=== PATIENT | male | born 1945 | race Caucasian/White ===

== ENCOUNTER 2018-01-11 17:21 | Inpatient (IN) | payer MEDICARE ==
[2018-01-11 17:53] VITALS: BMI 27.8
[2018-01-11] MEDS ORDERED: Milk Of Magnesia 30 ML UDCUP PO PRN (18:01)
[2018-01-11] MEDS ORDERED: Loperamide HCl 2 MG CAP PO PRN (18:01)
[2018-01-11] MEDS ORDERED: Ondansetron ODT 4 MG TAB PO PRN (18:01)
[2018-01-11] MEDS ORDERED: Calcium Carbonate 500 MG ChewTAB PO PRN (18:01)
[2018-01-11] MEDS ORDERED: HYDROcodone/Acetaminophen 10/325 mg Tablet PO PRN (18:01)
[2018-01-11] MEDS ORDERED: Mag-Al 1200 mg/1200 mg/30 ML UDCUP PO PRN (18:01)
[2018-01-11] MEDS ORDERED: Acetaminophen 325 MG TAB PO PRN (18:01)
[2018-01-11] MEDS ORDERED: Diazepam 5 MG TAB PO PRN (18:06)
[2018-01-11] MEDS: Docusate 100 MG CAP PO SCH (20:31)
[2018-01-11] MEDS: cloNIDine 0.1 MG TAB PO SCH (20:31)
[2018-01-11] MEDS: HYDROcodone/Acetaminophen 10/325 mg Tablet PO PRN (21:15)
--- NOTE | 2018-01-11 22:03 | HP ---
DATE OF ADMISSION: 01/11/2018 HISTORY OF PRESENT ILLNESS: Mr. Zuniga is a very pleasant 72-year-old white male that came to [facility] unannounced without contacting me or contacting the charge nurse. The patient i s admitted, seen and had an elective sacroiliac fusion with internal fixation device was done by Dr. Kaiser on 01/08/2018. The patient, for some reason, got transferred by ambulance without contactin g us. The DON had indication that he was supposed to come, but we did not get any reports to the [facility] or myself. Nonetheless, the patient showed up here and was admitted to swing bed for physical therapy and occupa tional therapy, statin because of his weakness. PAST MEDICAL HISTORY: 1. Positive for hypertension. 2. COPD. 3. Congenital heart disease. 4. Essential tremor. 5. Hypothyroidism. 6. Chronic pain management. 7. Osteoarthritis. 8. Prior stroke. 9. Possible prediabetes. 10. Generalized weakness. 11. Pain management. PAST SURGICAL HISTORY: 1. Appendectomy. 2. Cervical arthrodesis. 3. Exploratory laparotomy. 4. Surgical intervertebral disk surgery. 5. Melanoma excision in 1978. 6. Median nerve decompression. 7. Re-open laminectomy. 8. Sacroiliac arthrodesis. 9. Appendectomy. SOCIAL HISTORY: Reveals patient is . He stopped smoking in 1993. 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 PRESENT MEDICATIONS: Reveals his home medicines include the followin. Lisinopril 40 mg a day. 2. Clonidine 0.1 mg twice a day. 3. Levothyroxine 150 mcg each morning. 4. Sertraline 50 mg a day. 5. Valium 5 mg t.i.d. p.r.n. 6. [place] 10 q.6 hours. 7. Advair 250/50 twice a day. ALLERGIES: Patient has other medications from [facility] that trying to decipher what they want him on. REVIEW OF SYSTEMS: Revealed the patient denies any fever, chills, night sweats. He has fatigue and malaise. Patient denies any new skin rashes or skin lesions. 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 Patient denies any ch est pain, claudication, palpitations, syncope or edema. The patient does complain of some shortness of breath and COPD. Occasionally, he wheezes. Presently, he is on oxygen. He does usually wear oxy gen at home. GI paiz, the patient denies nausea, vomiting, indigestion, diarrhea or constipation. T he patient does complain arthralgias, stiffness, back pain, achiness and swelling and pain, especiall y at the surgical site. Neurologic: The patient is oriented to person, place and denies any signifi cant confusion. He does have some numbness and weakness secondary to his surgery. Psychologic: The patient's states he stay stressed and anxious and depressed at times. His memory is actually p retty good, but feels a little stroke and got a little worse. PHYSICAL EXAMINATION: GENERAL: This is a well-developed, well-nourished, very pleasant white male in no apparent distress at this time. HEENT: Reveals normocephalic, nontraumatic cranium. Pupils equally round and reactive. Extraocular movements intact. Nose and throat are slightly dry. NECK: Supple, without mass, nodes or bruits. LUNGS: Chest is clear to auscultation, but chest sounds are distant. No rales or rhonchi are heard at this time. Patient has rare wheeze which clears with cough. HEART: Reveals a regular rate and rhythm but is distant. No murmurs are heard because of the decrea sed heart sounds. ABDOMEN: Slightly obese, soft, nontender, without organomegaly, normal bowel sounds are noted. No r ebound or guarding is noted. : Deferred. EXTREMITIES: Reveal no clubbing, cyanosis or edema. NEUROLOGIC: The patient and his both state that Dr. Kaiser does not want him weightbearing on that left foot or leg. He is transferred here for PT and OT mainly and pain management. ASSESSMENT: 1. Status post sacroiliac fusion with internal fixation device done by Dr. Kaiser on 01/08/2018. 2. Hypertension. 3. Chronic obstructive pulmonary disease. 4. Congenital heart disease. 5. Essential tremor. 6. Hypothyroidism. 7. Chronic pain management. 8. Osteoarthritis. 9. Stroke. 10. Prediabetes. 11. Generalized weakness. PLAN: 1. We will try to get the patient's pain medicines organized. We will restart all his home medicine s. Follow his blood pressure and thyroid. We will also follow his sugars at this time. 2. Stress ulcer prophylaxis. 3. Decubitus precautions. 4. DVT prophylaxis. 5. Continue to monitor the patient for prediabetes with Accu-Cheks a.c. and at bedtime. 6. Continue to monitor the patient's blood pressure closely. 7. Physical therapy and occupational therapy.
[2018-01-12] MEDS: HYDROcodone/Acetaminophen 10/325 mg Tablet PO PRN ×4 (02:44→17:29)
[2018-01-12] MEDS: Levothyroxine 150 MCG TAB PO SCH (05:34)
[2018-01-12 05:37] LABS: #Basophils 0.1 thou/uL (0.0-0.2); #Eosinphils 0.5 thou/uL (0.0-0.7); #Lymphocytes 1.2 thou/uL (1.20-3.40); #Monocytes 0.8 thou/uL (0.11-0.59); %Basophils 1.7 % (0.0-1.0); %Eosinophils 8.5 % (0.0-10.0); %Lymphocytes 21.8 % (21.0-51.0); %Monocytes 13.6 % (0.0-10.0); %Neutrophils 54.4 % (42.0-75.0); Hemoglobin 10.9 g/dL (14.0-18.0); Mean Corpuscular HGB CONC 33.3 g/dL (32.0-36.0); Mean Corpuscular Hemoglobin 28.7 pg (27.0-31.0); Mean Corpuscular Volume 86.1 fL (78.0-98.0); Mean Platelet Volume 6.3 fL (7.4-10.4); Platelet Count 184 thou/uL (130-400); RBC Distribution Width 12.6 % (11.5-14.5); Red Blood Cell (RBC) Count 3.79 mill/uL (4.70-6.10); White Blood Cell (WBC) Count 5.5 thou/uL (4.8-10.8)
[2018-01-12 05:51] LABS: ALT (SGPT) 12 U/L (8-55); AST (SGOT) 21 U/L (5-34); Albumin 3.1 g/dL (3.4-4.8); Alkaline Phosphatase 50 U/L (40-150); Anion Gap 10 mmol/L (10-20); BUN (Urea Nitrogen) 10 mg/dL (8.4-25.7); Bilirubin, Total 0.7 mg/dL (0.2-1.2); Calc. Creatinine Clearance 119 mL/min (70-130); Calcium 8.8 mg/dL (7.8-10.44); Carbon Dioxide 26 mmol/L (23-31); Chloride 96 mmol/L (98-107); Estimated GFR-MDRD Greater than 90; Globulin 2.3 g/dL (2.4-3.5); Glucose 115 mg/dL (83-110); Potassium 4.4 mmol/L (3.5-5.1); Protein, Total 5.4 g/dL (5.8-8.1); Sodium 128 mmol/L (136-145)
[2018-01-12 05:54] LABS: Bilirubin Negative (Negative); Blood, Urine Negative (Negative); Clarity Clear (Clear); Glucose, Urine (Dipstick) Negative (Negative); Leukocyte Negative (Negative); Nitrite Negative (Negative); Protein, Urine (Dipstick) Negative (Neg-Trace); Urobilinogen 0.2 mg/dL (0.2-1.0)
[2018-01-12 05:56] LABS: Bacteria/HPF None Seen HPF (None Seen); RBC/HPF None Seen HPF (0-3); Squamous Epithelial 0-3 HPF (0-3); WBC/HPF None Seen HPF (0-3)
--- NOTE | 2018-01-12 09:09 | PRG ---
DATE OF SERVICE: 01/12/2018 HISTORY OF PRESENT ILLNESS: Mr. Zuniga is a very pleasant 72-year-old white male that came from [facility] after having a sacral fusion with internal fixation device done by Dr. Adis chawla. The patient actually showed appear unannounced. The patient was admitted to swing bed for PT , OT to increase the strength and his stamina. SUBJECTIVE: The patient states he is doing well today. His pain is fairly well controlled. His onl y complaint is that he is worried that his pain may not go away as much as he hopes. OBJECTIVE: VITAL SIGNS: Today reveal blood pressure 131/62, pulse 63-82, respirations 18-20, O2 sat 94%-96% on 2 liters, T-max is 98.0. LABORATORY DATA: Reveals white count 5000, hemoglobin 10.9, hematocrit 32.6, platelet count 184,000. Sodium 128, which is low and the patient states he always runs low sodium and has been given salt i n the past. Potassium is 4.6. His BUN is 10, creatinine 0.76 and his GFR is greater than 90. Sugar this morning was 115. Urinalysis was unremarkable. PHYSICAL EXAMINATION: GENERAL: This is a well-developed, well-nourished, very pleasant white male in no apparent distress at this time. HEENT: Reveals normocephalic, nontraumatic cranium. Pupils equally round and reactive. Extraocular movements intact. Nose and throat are slightly dry. NECK: Supple, without mass, nodes or bruits. LUNGS: Chest is clear to auscultation. No rales, rhonchi, wheezes or cough is noted. HEART: Reveals a regular rate and rhythm without murmurs, gallops or rubs. ABDOMEN: Soft, nontender, without organomegaly, normal bowel sounds are noted. No rebound or guardi ng is noted. GENITOURINARY: Deferred. EXTREMITIES: Reveal no clubbing, cyanosis or edema. BACK: Still bandaged up. No significant drainage. IMPRESSION: 1. Status post sacral fusion with an internal fixation device done by Dr. Kaiser on 01/08/2018. 2. Hypertension. 3. Chronic obstructive pulmonary disease, but not on oxygen at home. 4. Congenital heart disease. 5. Essential tremor. 6. Hypothyroidism. 7. Osteoarthritis. 8. Stroke. 9. Prediabetic. 10. Chronic pain management. 11. Generalized weakness. PLAN: 1. The patient seems to be doing fairly well today. His thyroid and everything is under control. W e will continue to follow his sugars. 2. Stress ulcer prophylaxis. 3. Decubitus precautions. 4. Deep venous thrombosis prophylaxis. 5. Continue prediabetic Accu-Cheks a.c. and at bedtime. 6. Continue to monitor the patient's blood pressure closely. 7. PT and OT.
[2018-01-12] MEDS: cloNIDine 0.1 MG TAB PO SCH ×2 (09:28→20:40)
[2018-01-12] MEDS: Docusate 100 MG CAP PO SCH ×2 (09:29→20:40)
[2018-01-12] MEDS: Lisinopril 20 MG TAB PO SCH (09:29)
[2018-01-12] MEDS: ADVAIR INH SCH (09:38)
[2018-01-13] MEDS: HYDROcodone/Acetaminophen 10/325 mg Tablet PO PRN ×4 (01:03→20:31)
[2018-01-13] MEDS: ADVAIR INH SCH ×2 (05:30→18:15)
[2018-01-13] MEDS: Levothyroxine 150 MCG TAB PO SCH (06:24)
--- NOTE | 2018-01-13 09:05 | PRG ---
DATE OF SERVICE: 01/13/2018 DATE OF ADMISSION: 01/11/2018 HISTORY OF PRESENT ILLNESS: Mr. Zuniga is a very pleasant 72-year-old white male, who was transferre d from [facility] for physical therapy and occupational therapy. Dr. Kaiser did a sacral fusion with internal fixation device. The patient is looking forward to getting his therapy starting tomorrow. He did have a PT/OT evaluation yesterday. SUBJECTIVE: The patient states he is doing well, and he has no complaints today. His pain is fairly well controlled. PHYSICAL EXAMINATION: VITAL SIGNS: Reveal blood pressure 122/76, pulse 80-81, respirations 20, O2 sat 95% on 2 liters nasa l cannula, T-max 98.4. GENERAL: This is a well-developed, well-nourished, slightly obese white male, in no apparent distres s at this time. HEENT: Reveals normocephalic, nontraumatic cranium. Pupils equally round and reactive. Extraocular movements intact. Nose and throat are slightly dry. NECK: Supple, without mass, nodes, or bruits. CHEST: Clear to auscultation. No rales, rhonchi, or wheezes are heard. CARDIOVASCULAR: Reveals a regular rate and rhythm without murmurs, gallops, or rubs. ABDOMEN: Soft, nontender, without organomegaly. Normal bowel sounds are noted in all 4 quadrants. No rebound or guarding is noted. EXAM: Deferred. EXTREMITIES: Reveal no clubbing, cyanosis, or edema. Good strength. BACK: Reveals is still bandaged up with no significant drainage. IMPRESSION: 1. Status post sacral fusion with an internal fixation device done by Dr. Kaiser on 01/08/2018. 2. Hypertension. 3. Chronic obstructive pulmonary disease. 4. Congenital heart disease. 5. Essential tremor. 6. Hypothyroidism. 7. Osteoarthritis. 8. Stroke. 9. Prediabetic. 10. Chronic pain management. 11. Generalized weakness. PLAN: 1. Continue to monitor the patient's sugars with Accu-Cheks a.c. and at bedtime 1 more day and then we can stop. 2. Stress ulcer prophylaxis. 3. Decubitus precautions. 4. Deep venous thrombosis prophylaxis. 5. Continue prediabetic Accu-Cheks a.c. and at bedtime. 6. Continue to monitor the patient's blood pressure closely. 7. PT and OT.
[2018-01-13] MEDS: cloNIDine 0.1 MG TAB PO SCH ×2 (09:10→20:31)
[2018-01-13] MEDS: Docusate 100 MG CAP PO SCH ×2 (09:11→20:31)
[2018-01-13] MEDS: Lisinopril 20 MG TAB PO SCH (09:11)
[2018-01-13] MEDS: Mag-Al Plus 1200 MG/1200 MG/120 MG/30 ML UDCUP PO PRN (21:23)
[2018-01-14] MEDS: HYDROcodone/Acetaminophen 10/325 mg Tablet PO PRN ×3 (03:35→20:27)
[2018-01-14] MEDS: Levothyroxine 150 MCG TAB PO SCH (05:49)
[2018-01-14] MEDS: ADVAIR INH SCH (05:50)
[2018-01-14] MEDS: cloNIDine 0.1 MG TAB PO SCH ×2 (09:28→20:26)
[2018-01-14] MEDS: Lisinopril 20 MG TAB PO SCH (09:29)
[2018-01-14] MEDS: Docusate 100 MG CAP PO SCH ×2 (09:29→20:27)
[2018-01-14] MEDS: Mag-Al Plus 1200 MG/1200 MG/120 MG/30 ML UDCUP PO PRN (14:53)
[2018-01-14] MEDS: Mometasone/Formoterol 60 PUFF AER INH SCH (18:04)
--- NOTE | 2018-01-15 00:56 | PRG ---
DATE OF SERVICE: 01/14/2018 SUBJECTIVE: The patient is a very pleasant 72-year-old white male with a history of recent sacral fu ashia with internal fixation device at the left sacroiliac area by Dr. Kaiser, who was admitted for PT and OT. He has been up walking to the cruz, which states is a great improvement. He is now complaining however of right-sided pain. He also has a history of hypertension, COPD, and has had so me hypoxemia requiring oxygen supplementation, but denies shortness of breath or chest pain. OBJECTIVE: VITAL SIGNS: Blood pressure is 118/67, O2 sats 93% on 1 liter, afebrile, pulse 69. LUNGS: Clear. CARDIAC: Regular rhythm. No gallops or murmurs. ABDOMEN: Soft and nontender with no masses or organomegaly. SKIN/EXTREMITIES: Some bruising over the left sacroiliac area with no erythema or warmth. ASSESSMENT: 1. Resolving sacroiliac joint fusion by Dr. Kaiser, left side, with decreased pain and increased a mbulation. 2. Hypertension, controlled to goal. 3. Chronic obstructive pulmonary disease with no significant dyspnea and mild hypoxia, on supplement ation. PLAN: Discontinue oxygen. Monitor O2 sats. Continue PT/OT. Arranged for the patient to go to see Dr. Kaiser on 01/17/2018.
[2018-01-15] MEDS: Mometasone/Formoterol 60 PUFF AER INH SCH (05:25)
[2018-01-15] MEDS: Levothyroxine 150 MCG TAB PO SCH (05:25)
[2018-01-15] MEDS: HYDROcodone/Acetaminophen 10/325 mg Tablet PO PRN ×5 (05:26→23:14)
[2018-01-15] MEDS: Lisinopril 20 MG TAB PO SCH (08:55)
[2018-01-15] MEDS: Docusate 100 MG CAP PO SCH ×2 (08:56→20:10)
[2018-01-15] MEDS: cloNIDine 0.1 MG TAB PO SCH ×2 (08:56→20:10)
[2018-01-15] MEDS: Mag-Al Plus 1200 MG/1200 MG/120 MG/30 ML UDCUP PO PRN (17:53)
[2018-01-15] MEDS: ADVAIR INH SCH (18:39)
--- NOTE | 2018-01-15 19:32 | PRG ---
DATE OF SERVICE: 01/15/2018 SUBJECTIVE: The patient feels well with decreased pain in his back, has been eating well, sleeping w ell. No shortness of breath or constipation. Still, however, is unable to transfer into the car ant icipation of his trip to see his surgeon in 2 days, but we will attempt this tomorrow. OBJECTIVE: VITAL SIGNS: Blood pressure 118/67, pulse 64, O2 sats 94% on room air. He is afebrile. Laboratorie s show Accu-Chek stable from 101-150. LUNGS: Clear. CARDIAC: Regular rhythm. ABDOMEN: Soft, nontender. SKIN AND EXTREMITIES: Show minimal tenderness to palpation of bilateral sacroiliac areas. ASSESSMENT: 1. Resolving sacroiliac joint fusion, left side with persistent but decreased pain. 2. Hypertension, controlled to goal. 3. Chronic obstructive pulmonary disease, stable. 4. Stable off oxygen. 5. Hypothyroidism, stable.
[2018-01-16] MEDS: HYDROcodone/Acetaminophen 10/325 mg Tablet PO PRN ×4 (03:13→19:57)
[2018-01-16] MEDS: ADVAIR INH SCH ×4 (05:31→18:22)
[2018-01-16] MEDS: Levothyroxine 150 MCG TAB PO SCH (05:31)
[2018-01-16] MEDS: Docusate 100 MG CAP PO SCH ×2 (08:55→19:57)
[2018-01-16] MEDS: cloNIDine 0.1 MG TAB PO SCH ×2 (08:55→19:56)
[2018-01-16] MEDS: Lisinopril 20 MG TAB PO SCH (08:55)
--- NOTE | 2018-01-16 17:16 | PRG ---
DATE OF SERVICE: 01/16/2018 SUBJECTIVE: The patient is sitting up in bed reading the paper, feels well. He did well with therap y today and asking when he can be discharged. He is planning to see his surgeon tomorrow. OBJECTIVE: VITAL SIGNS: Blood pressure is 124/64, O2 sats 94% on room air, pulse 62, respirations 20, temperatu re 97.8. The patient did walk today and transfer to the car, but still he is in a great deal of pain and not a ble to walk long distances. ASSESSMENT: 1. Resolving left sacroiliac fusion with increasing strength with persistent pain. 2. Chronic obstructive pulmonary disease, stable with no hypoxemia. 3. Hypertension, controlled to goal. 4. Hypothyroidism. PLAN: 1. Follow up with Dr. Kaiser tomorrow. 2. Continue PT, OT until reach goal.
[2018-01-17] MEDS: HYDROcodone/Acetaminophen 10/325 mg Tablet PO PRN ×4 (01:29→21:11)
[2018-01-17] MEDS: Levothyroxine 150 MCG TAB PO SCH (06:16)
[2018-01-17] MEDS: ADVAIR INH SCH ×3 (07:05→18:25)
[2018-01-17] MEDS: Lisinopril 20 MG TAB PO SCH (08:25)
[2018-01-17] MEDS: Docusate 100 MG CAP PO SCH ×2 (08:25→21:11)
[2018-01-17] MEDS: cloNIDine 0.1 MG TAB PO SCH ×2 (08:25→21:09)
--- NOTE | 2018-01-17 19:04 | PRG ---
DATE OF SERVICE: 01/17/2018 SUBJECTIVE: The patient feels well, has recently returned from seeing his neurosurgeon, Dr. Kaiser and has had release to ambulate as tolerated. OBJECTIVE: VITAL SIGNS: Blood pressure 141/63, temperature 97, pulse 70, respirations 18, O2 saturation is 95%. LUNGS: Clear. CARDIAC: Showed regular rhythm. ABDOMEN: Soft, nontender. BACK: Shows persistent but decreased lower back pain. ASSESSMENT: 1. Resolving sacroiliac fusion on the left with decreasing spasms and tenderness, increasing strengt h. 2. Chronic obstructive pulmonary disease, stable. 3. Hypertension, controlled to goal. 4. Hypothyroidism, stable. PLAN: Continue PT, OT tomorrow and possible discharge after OT tomorrow.
[2018-01-17 19:47] VITALS: TEMP 98
[2018-01-18] MEDS: Mag-Al Plus 1200 MG/1200 MG/120 MG/30 ML UDCUP PO PRN (03:11)
[2018-01-18] MEDS: Levothyroxine 150 MCG TAB PO SCH (06:07)
[2018-01-18] MEDS: ADVAIR INH SCH (06:08)
[2018-01-18] MEDS: cloNIDine 0.1 MG TAB PO SCH (08:48)
[2018-01-18] MEDS: Docusate 100 MG CAP PO SCH (08:48)
[2018-01-18] MEDS: Lisinopril 20 MG TAB PO SCH (08:48)
[2018-01-18] MEDS: HYDROcodone/Acetaminophen 10/325 mg Tablet PO PRN (12:49)
[2018-01-18 14:09] VITALS: BP 132/72
--- NOTE | 2018-01-18 23:12 | DIS ---
DATE OF ADMISSION: 01/11/2018 DATE OF DISCHARGE: 01/18/2018 FINAL DIAGNOSES: 1. Bilateral sacroiliac instability, status post fusion with internal fixation device on 01/08/2018 2. Chronic obstructive pulmonary disease, stable. 3. Hypothyroidism, stable. 4. Prediabetes, stable. 5. Essential tremor. 6. Hypertension. 7. Hypothyroidism. HOSPITAL COURSE: The patient is a very pleasant 72-year-old white male, admitted to the skilled unit after having a sacroiliac fusion on the left by Dr. Kaiser. He was admitted for PT and OT. He di d well during therapy with gradually decreasing back pain, increasing stability, and was seen by Dr. Kaiser and felt to be stable to be discharged home after 1 week. He was continued on his home medi cations of lisinopril 40 daily, clonidine 0.1 twice daily, levothyroxine 150 mcg daily, sertraline 50 daily, Valium 5 mg 3 times daily as needed, [place] 5 mg every 6 hours as needed, Advair 250/50 twice daily. He also had a fentanyl patch on 25 mcg to last until next week and to be renewed by Dr. Loki duncan if required. His laboratory during his hospitalization was stable with a hemoglobin of 10, hemat ocrit of 32, white count 5500. Sodium was 128, potassium 4.4, chloride 96, bicarbonate 26, BUN 10, c reatinine 0.76. Accu-Cheks remained stable at 125-149 on a diabetic diet. He will follow up with [facility] PCP, Dr. Olson and Dr. Kaiser.
== END 2018-01-18 13:50 | disposition home or self-care (01) | DRG 552 ==
LOC: NAV ACUTE 17:21
PROVIDERS: ADMIT Internal Medicine; ATTEND Internal Medicine
DX: M53.2X8 Spinal instabilities, sacral and sacrococcygeal region (principal); M46.1 Sacroiliitis, not elsewhere classified; G89.18 Other acute postprocedural pain; Z98.1 Arthrodesis status; J44.9 Chronic obstructive pulmonary disease, unspecified; E03.9 Hypothyroidism, unspecified; R73.03 Prediabetes; G25.0 Essential tremor; I10 Essential (primary) hypertension; Q24.9 Congenital malformation of heart, unspecified; G89.29 Other chronic pain; M19.90 Unspecified osteoarthritis, unspecified site; Z86.73 Personal history of transient ischemic attack (TIA), and cerebral infarction without residual deficits; Z85.820 Personal history of malignant melanoma of skin; Z87.891 Personal history of nicotine dependence; Z99.81 Dependence on supplemental oxygen; Y83.4 Other reconstructive surgery as the cause of abnormal reaction of the patient, or of later complication, without mention of misadventure at the time of the procedure; Y79.3 Surgical instruments, materials and orthopedic devices (including sutures) associated with adverse incidents; Y92.129 Unspecified place in nursing home as the place of occurrence of the external cause
CPT/HCPCS: 36415; 36416; 80053; 81001; 85025; G8978-GP-CK; G8979-GP-CI

== ENCOUNTER 2018-01-22 07:11 | Emergency (ER) | payer MEDICARE ==
[2018-01-22 08:20] LABS: #Basophils 0.1 thou/uL (0.0-0.2); #Lymphocytes 1.4 thou/uL (1.20-3.40); #Monocytes 0.5 thou/uL (0.11-0.59); #Neutrophils 7.1 thou/uL (1.40-6.50); %Basophils 0.8 % (0.0-1.0); %Eosinophils 0.1 % (0.0-10.0); %Lymphocytes 14.9 % (21.0-51.0); %Monocytes 5.8 % (0.0-10.0); %Neutrophils 78.3 % (42.0-75.0); Hemoglobin 13.1 g/dL (14.0-18.0); Mean Corpuscular HGB CONC 32.7 g/dL (32.0-36.0); Mean Corpuscular Hemoglobin 28.1 pg (27.0-31.0); Mean Corpuscular Volume 85.9 fL (78.0-98.0); Mean Platelet Volume 5.9 fL (7.4-10.4); Platelet Count 457 thou/uL (130-400); RBC Distribution Width 13.1 % (11.5-14.5); Red Blood Cell (RBC) Count 4.67 mill/uL (4.70-6.10); White Blood Cell (WBC) Count 9.1 thou/uL (4.8-10.8)
[2018-01-22] MEDS ORDERED: Lorazepam 2 MG/ML VIAL ONE (08:30)
[2018-01-22] MEDS ORDERED: Lorazepam 1 MG TAB ONE (08:32)
[2018-01-22 08:35] LABS: CKMB 2.3 ng/mL (0-6.6); Troponin I 0.013 ng/mL (< 0.028)
[2018-01-22 08:36] LABS: ALT (SGPT) 20 U/L (8-55); AST (SGOT) 17 U/L (5-34); Alkaline Phosphatase 84 U/L (40-150); Anion Gap 15 mmol/L (10-20); BUN (Urea Nitrogen) 7 mg/dL (8.4-25.7); Bilirubin, Total 0.6 mg/dL (0.2-1.2); CK (CPK) 96 U/L (30-200); Calc. Creatinine Clearance 0 mL/min (70-130); Carbon Dioxide 21 mmol/L (23-31); Chloride 103 mmol/L (98-107); Estimated GFR-MDRD 77; Globulin 2.7 g/dL (2.4-3.5); Glucose 177 mg/dL (83-110); Potassium 3.7 mmol/L (3.5-5.1); Protein, Total 6.7 g/dL (5.8-8.1); Sodium 135 mmol/L (136-145)
[2018-01-22] MEDS ORDERED: Furosemide 20 MG/2 ML VIAL ONE (08:47)
--- NOTE | 2018-01-22 09:29 | RAD ---
CHEST 1 VIEW: Date: 01/22/18 HISTORY: Shortness of breath. COMPARISON: Chest radiograph from 2006. FINDINGS: Lungs are hyperinflated. No focal air space consolidation. There is dilatation of the pulmonary arter ies. No acute osseous abnormality. Old left clavicular injury. ACDF hardware incompletely evaluated. IMPRESSION: 1. Lung hyperinflation suggesting obstructive pulmonary disease. 2. Pulmonary arterial hypertension. POS: [facility]
== END 2018-01-22 09:52 | disposition home or self-care (01) ==
LOC: NAV ERS 07:11
DX: R06.4 Hyperventilation (principal); R60.9 Edema, unspecified; E03.9 Hypothyroidism, unspecified; I10 Essential (primary) hypertension; J44.9 Chronic obstructive pulmonary disease, unspecified; F32.9 Major depressive disorder, single episode, unspecified; Z87.891 Personal history of nicotine dependence; Z79.899 Other long term (current) drug therapy
CPT/HCPCS: 71045; 80053; 82550; 82553; 83880; 84484; 85025; 93005; 96374; J1940; J2060

== ENCOUNTER 2018-01-23 10:08 | Outpatient (CLI) | payer MEDICARE ==
--- NOTE | 2018-01-23 12:14 | ULT ---
LEFT LOWER EXTREMITY VENOUS ULTRASOUND WITH DOPPLER: HISTORY: Left leg swelling x4 days. COMPARISON: None. TECHNIQUE: Coughlin-scale, color-flow, and spectral wave-form analysis was performed of the left lower extremity [place] ous system. FINDINGS: At the popliteal fossa, there is a 3 x 1.3 x 6 cm anechoic focus, likely representing a popliteal cys t. The borders are slightly irregular, and confirmation with MRI can be performed nonemergently. There is compressibility, presence of flow, and augmentation in the common femoral vein, femoral vein , and popliteal vein. There is flow in the greater saphenous vein, profunda vein, and posterior tibi al vein. IMPRESSION: 1. No evidence of thrombus in the left lower extremity venous system. 2. Probable Muhammad's cyst in the left popliteal fossa. Confirmation with nonemergent MRI if warrante d. POS: [facility]
== END 2018-01-23 10:09 | disposition home or self-care (01) ==
LOC: NAV ULT 10:08
PROVIDERS: ATTEND Orthopaedic Surgery
DX: I82.409 Acute embolism and thrombosis of unspecified deep veins of unspecified lower extremity (principal)